=== PATIENT | male | born 1950 | race Caucasian/White ===

== ENCOUNTER 2018-07-14 05:45 | Day surgery (SDC) | payer BC ==
[2018-07-13 14:14] VITALS: BMI 35.2
--- NOTE | 2018-07-13 23:20 | HP ---
DATE OF ADMISSION: 07/14/2018 HISTORY OF PRESENT ILLNESS: This is a 67-year-old male who comes for colonoscopy for colon cancer screening. The patient has no specific GI symptoms. His bowel movements are regular. Denie s abdominal pain or hematochezia. ALLERGIES: None. MEDICAL HISTORY: 1. Hypertension. 2. Diabetes mellitus. 3. Chronic acid reflux. SOCIAL HISTORY: The patient does not smoke or drink alcohol. PHYSICAL EXAMINATION: GENERAL: Appears comfortable. VITAL SIGNS: Pulse is 70, blood pressure 130/80. HEENT: Conjunctivae clear. CARDIOVASCULAR: First and second heart sounds normal. LUNGS: Clear to auscultation. ABDOMEN: Soft. No organomegaly. No tenderness. No masses. ADMITTING DIAGNOSIS: A 67-year-old male who comes for colonoscopy for colon cancer screenganesh benites
--- NOTE | 2018-07-14 10:52 | OP ---
DATE OF PROCEDURE: 07/14/2018 OPERATIVE PROCEDURE: Colonoscopy. PREOPERATIVE DIAGNOSIS: A 67-year-old male undergoing colonoscopy for colon cancer screeni ng. POSTOPERATIVE DIAGNOSIS: Normal colonoscopy. PROCEDURE IN DETAIL: The patient was placed on his left lateral position and was given sedation by [facility] nesthesia [facility]. A rectal exam was done before the scope was advanced into the rectum. No lesi ons felt on rectal exam. A [employer] video colonoscope was introduced into the rectum and advanced all the way into the cecum. The prep was good. The appendiceal orifice, ileocecal valve was well seen. No pathology seen. Withdrawal of scope from the cecum to the ascending colon, hepatic flexure, no p athology seen. The transverse colon, splenic flexure, descending colon, and sigmoid colon, no pathol ogy seen. Rectum showed hemorrhoids. DISCHARGE PLANNING: This is a 67-year-old male who came for colonoscopy for colon cancer s creening. The patient underwent colonoscopy. There is no pathology seen. DISCHARGE RECOMMENDATIONS: 1. The patient was advised to call me if he developed abdominal pain, hematochezia. 2. In the absence of any of his symptoms, he is to come back to me in 2 weeks.
[2018-07-14] MEDS ORDERED: Lidocaine 1% PF 5 ML VIAL ONE (13:29)
[2018-07-14] MEDS ORDERED: PROPOFOL 200 MG/20 ML VIAL ONE (13:29)
== END 2018-07-14 10:40 | disposition home or self-care (01) ==
LOC: SDC 05:45
PROVIDERS: ATTEND Internal Medicine Gastroenterology
PROC: 0DJD8ZZ Inspection of Lower Intestinal Tract, Via Natural or Artificial Opening Endoscopic (ICD-10-PCS; principal; 2018-07-14)
DX: Z12.11 Encounter for screening for malignant neoplasm of colon (principal); K64.9 Unspecified hemorrhoids; I10 Essential (primary) hypertension; E11.9 Type 2 diabetes mellitus without complications; K21.9 Gastro-esophageal reflux disease without esophagitis; Z79.82 Long term (current) use of aspirin; Z79.84 Long term (current) use of oral hypoglycemic drugs; Z79.899 Other long term (current) drug therapy
CPT/HCPCS: J2001; J2704